=== PATIENT | male | born 2000 | race Two or more races ===

== ENCOUNTER 2021-04-13 17:27 | Emergency (ER) | payer SELFPAY ==
[~2021-04-13] VITALS: Ht 167.6 cm; Wt 85.3 kg
[2021-04-13 18:54] VITALS: BP 155/90
== END 2021-04-13 22:18 | disposition home or self-care (01) ==
LOC: ER 17:28
DX: S62.306A Unspecified fracture of fifth metacarpal bone, right hand, initial encounter for closed fracture (principal); F17.210 Nicotine dependence, cigarettes, uncomplicated; W22.8XXA Striking against or struck by other objects, initial encounter; Y93.89 Activity, other specified; Y92.89 Other specified places as the place of occurrence of the external cause; Y99.8 Other external cause status
CPT/HCPCS: 29125; 73130